=== PATIENT | male | born 1985 | race Caucasian/White ===

== ENCOUNTER 2023-06-08 17:26 | Emergency (ER) | payer OTHER, SELFPAY ==
[~2023-06-08] VITALS: Ht 165.1 cm; Wt 82.3 kg
[2023-06-08 17:27] VITALS: BP 147/91; TEMP 98.5; O2SAT 97
== END 2023-06-08 18:44 | disposition left against medical advice (07) ==
LOC: M ED 17:26
DX: Z53.21 Procedure and treatment not carried out due to patient leaving prior to being seen by health care provider (principal)

== ENCOUNTER 2023-06-09 01:50 | Emergency (ER) | payer OTHER, SELFPAY ==
[~2023-06-09] VITALS: Ht 165.1 cm; Wt 82.6 kg
[2023-06-09] MEDS ORDERED: LORazepam 2 MG TAB PO ONE ×2 (02:45→09:00)
[2023-06-09 03:10] LABS: HEMATOCRIT 44.4 % (42.0-52.0); HEMOGLOBIN 16.1 g/dl (13.5-17.5); MEAN CORPUSCULAR HGB CONC 36.3 g/dl (32.0-36.5); MEAN CORPUSCULAR VOLUME 85.5 fl (80.0-96.0); PLATELET COUNT, AUTOMATED 228 10^3/uL (150-450); RED BLOOD COUNT 5.19 10^6/uL (4.30-6.10); WHITE BLOOD COUNT 13.8 10^3/uL (4.0-10.0)
[2023-06-09 03:32] LABS: AMPHETAMINES LEVEL URINE NEGATIVE (NEGATIVE); BARBITURATES URINE NEGATIVE (NEGATIVE); CANNABINOIDS URINE NEGATIVE (NEGATIVE); COCAINE METABOLITE URINE NEGATIVE (NEGATIVE); METHADONE URINE NEGATIVE (NEGATIVE); OPIATES URINE NEGATIVE (NEGATIVE); PHENCYCLIDINE URINE NEGATIVE (NEGATIVE)
[2023-06-09 03:33] LABS: BENZODIAZEPINES URINE NEGATIVE (NEGATIVE)
[2023-06-09 03:34] LABS: ETHYL ALCOHOL (ETHANOL) < 0.003 % (0.000-0.010)
[2023-06-09] MEDS: OLANZapine ORAL DISINTEGRATING TAB 5MG PO ONE (03:34)
[2023-06-09 03:36] LABS: ALBUMIN 3.8 G/DL (3.2-5.2); ALKALINE PHOSPHATASE 112 U/L (46-116); ALT/SGPT 27 U/L (7.0-40); AST/SGOT 18 U/L (<34); BILIRUBIN,DIRECT < 0.1 MG/DL (<0.4); BILIRUBIN,TOTAL 0.3 MG/DL (0.3-1.2); BLOOD UREA NITROGEN 14 MG/DL (9-23); CALCIUM LEVEL 8.8 MG/DL (8.5-10.1); CARBON DIOXIDE LEVEL 25 MMOL/L (20-31); CHLORIDE LEVEL 105 MMOL/L (98-107); CREATININE FOR GFR 0.69 MG/DL (0.70-1.30); GLOMERULAR FILTRATION RATE > 60.0 (>60); GLUCOSE, FASTING 100 MG/DL (60-100); POTASSIUM SERUM 4.2 MMOL/L (3.5-5.1); SALICYLATE LEVEL < 3.0 MG/DL (<30); SODIUM LEVEL 137 MMOL/L (136-145); TOTAL PROTEIN 6.7 G/DL (5.7-8.2)
[2023-06-09 03:38] LABS: THYROID STIMULATING HORMONE 5.979 uIU/ML (0.55-4.78)
[2023-06-09 04:09] LABS: FREE T4 0.99 NG/DL (0.89-1.76)
[2023-06-09 07:23] VITALS: BP 127/61; TEMP 96.9; O2SAT 96
== END 2023-06-09 13:19 | disposition home or self-care (01) ==
LOC: M ED 01:50
DX: F41.9 Anxiety disorder, unspecified (principal); Z59.00 Homelessness unspecified; F17.200 Nicotine dependence, unspecified, uncomplicated; F19.90 Other psychoactive substance use, unspecified, uncomplicated